=== PATIENT | female | born 1950 | race Caucasian/White ===

== ENCOUNTER → 2016-04-27 | Outpatient (CLI) | payer MEDICARE, BC ==
--- NOTE | 2016-04-27 14:22 | MM ---
Reason for exam: screening (asymptomatic). Last mammogram was performed 1 year ago. History: Patient is postmenopausal. Benign stereotactic core biopsy of the left breast, July 02, 2003. Benign stereotactic core biopsy of the right breast, July 02, 2003. Took hormonal contraceptives for 8 years beginning at age 19. Took estrogen for 6 years 9 months beginning at age 52. Took progesterone for 6 years 9 months beginning at age 52. Physical Findings: A clinical breast exam by your physician is recommended on an annual basis and results should be correlated with mammographic findings. MG Screening Mammo w CAD Bilateral CC and MLO view(s) were taken. Prior study comparison: April 25, 2015, bilateral MG screening mammo w CAD. April 15, 2014, bilateral MG diagnostic mammo w CAD [place]. The breast tissue is heterogeneously dense. This may lower the sensitivity of mammography. Finding: There are typically benign round calcifications in both breasts. Previous mammotome biopsy in the left breast. There is no discrete abnormality. ASSESSMENT: Benign, BI-RAD 2 RECOMMENDATION: Routine screening mammogram of both breasts in 1 year.
== END | disposition home or self-care (01) ==
LOC: RADMAMWWP 08:57
PROVIDERS: ATTEND Obstetrics & Gynecology
DX: Z12.31 Encounter for screening mammogram for malignant neoplasm of breast (principal)

== ENCOUNTER → 2017-03-15 | Outpatient (CLI) | payer MEDICARE ==
[2017-03-15 09:41] LABS: Appearance,Urine Clear (Clear); Bilirubin,Urine Negative (Negative); Glucose,Urine (UA) Negative (Negative); Ketones,Urine Negative (Negative); Leukocyte Esterase,Urine Negative (Negative); Nitrite,Urine Negative (Negative); PH, Urine 7.5 (5.0-8.0); Protein,Urine Negative (Negative); Specific Gravity,Urine 1.015 (1.001-1.035); UA Billing (MACRO vs. MICRO) CHEM; Urobilinogen,Urine <2.0 mg/dL (<2.0)
[2017-03-15 09:42] LABS: Basophils % (A) 1 %; CH 30.7; CHCM 31.6; Eosinophils # (A) 0.2 k/uL (0-0.7); Eosinophils % (A) 3 %; HDW 1.97; HGB 14.1 gm/dL (11.4-16.0); Luc # (Auto) 0.12; Luc % (Auto) 3; Lymphocytes # (A) 2.1 k/uL (1.0-4.8); Lymphocytes % (A) 44 %; MCH 31.2 pg (25.0-35.0); MCHC 31.9 g/dL (31.0-37.0); MCV 97.7 fL (80.0-100.0); Mean Platelet Volume 7.2; Monocytes # (A) 0.3 k/uL (0-1.0); Monocytes % (A) 5 %; Neutrophils # (A) 2.1 k/uL (1.3-7.7); Neutrophils % (A) 45 %; RDW 14.1 % (11.5-15.5); WBC 4.7 k/uL (3.8-10.6); WBC (Perox) 4.78
[2017-03-15 10:09] LABS: ALT 54 U/L (9-52); AST 43 U/L (14-36); Alkaline Phosphatase 52 U/L (38-126); Anion Gap 10 mmol/L; Blood Urea Nitrogen 21 mg/dL (7-17); Calcium 9.4 mg/dL (8.4-10.2); Carbon Dioxide 29 mmol/L (22-30); Chloride 103 mmol/L (98-107); Cholesterol 252 mg/dL (<200); Creatine Kinase 52 U/L (30-135); Glucose 100 mg/dL (74-99); HDL Cholesterol 97 mg/dL (40-60); Non-African American GFR(MDRD) >60 (>60 ml/min/1.73 sqM); Potassium 4.4 mmol/L (3.5-5.1); Sodium 142 mmol/L (137-145); Total Bilirubin 0.4 mg/dL (0.2-1.3); Total Protein 7.3 g/dL (6.3-8.2); Uric Acid 4.4 mg/dL (3.7-7.4)
== END | disposition home or self-care (01) ==
LOC: LABWHC1 08:45
PROVIDERS: ATTEND Internal Medicine
DX: Z00.00 Encounter for general adult medical examination without abnormal findings (principal); E78.00 Pure hypercholesterolemia, unspecified; M85.9 Disorder of bone density and structure, unspecified
CPT/HCPCS: 36415; 80053; 80061; 81003; 82306; 82550; 83036; 84439; 84443; 84550; 85025

== ENCOUNTER → 2017-04-03 | Outpatient (CLI) | payer MEDICARE ==
--- NOTE | 2017-04-03 08:26 | US ---
EXAMINATION TYPE: US abdomen complete DATE OF EXAM: 04/03/2017 COMPARISON: NONE CLINICAL HISTORY: R94.5 Abnormal Results of Liver Function Studies. Abnormal results of liver functio n test, patient states no abdomen pain or N/V EXAM MEASUREMENTS: Liver Length: 12.6 cm Gallbladder Wall: 0.2 cm CBD: 0.3 cm Spleen: n/a Right Kidney: 10.6 x 3.9 x 4.7 cm Left Kidney: 10.6 x 5.7 x 4.7 cm Pancreas: visualized portions wnl, tail limited by overlying midline bowel gas Liver: heterogeneous Gallbladder: wnl Evidence for sonographic Montes's sign: no CBD: wnl Spleen: mostly obscured by overlying bowel gas Right Kidney: small 0.7cm cyst superior pole Left Kidney: visualized portions wnl, superior and inferior poles limited by rib shadowing and overl vito bowel gas Upper IVC: wnl Abd Aorta: wnl The intrahepatic portion of the IVC and proximal abdominal aorta are within normal limits. There is no evidence of cholelithiasis. Common bile duct is unremarkable. The visualized portions of the hernandez creas are homogenous. The spleen is grossly unremarkable. Kidneys are symmetric and free of hydrone phrosis. IMPRESSION: 1. Probable fatty hepatic infiltration. 2. Small right renal cyst.
== END | disposition home or self-care (01) ==
LOC: RADUSWWP 07:35
PROVIDERS: ATTEND Internal Medicine
DX: N28.1 Cyst of kidney, acquired (principal)
CPT/HCPCS: 76700

== ENCOUNTER → 2017-04-29 | Outpatient (CLI) | payer MEDICARE ==
--- NOTE | 2017-05-01 07:37 | MM ---
Reason for exam: screening (asymptomatic). Last mammogram was performed 1 year ago. History: Patient is postmenopausal. Benign stereotactic core biopsy of the left breast, July 02, 2003. Benign stereotactic core biopsy of the right breast, July 02, 2003. Took hormonal contraceptives for 8 years beginning at age 19. Took estrogen for 6 years 9 months beginning at age 52. Took progesterone for 6 years 9 months beginning at age 52. Physical Findings: A clinical breast exam by your physician is recommended on an annual basis and results should be correlated with mammographic findings. MG Screening Mammo w CAD Bilateral CC and MLO view(s) were taken. Prior study comparison: April 27, 2016, bilateral MG screening mammo w CAD. April 25, 2015, bilateral MG screening mammo w CAD. The breast tissue is heterogeneously dense. This may lower the sensitivity of mammography. Finding: There are typically benign diffuse/scattered calcifications in both breasts. No suspicious abnormality. Bilateral biopsy markers No significant changes in finding since April 27, 2016 and April 25, 2015. ASSESSMENT: Benign, BI-RAD 2 RECOMMENDATION: Routine screening mammogram of both breasts in 1 year.
== END | disposition home or self-care (01) ==
LOC: RADMAMWWP 11:19
PROVIDERS: ATTEND Obstetrics & Gynecology
DX: Z12.31 Encounter for screening mammogram for malignant neoplasm of breast (principal)
CPT/HCPCS: 77067

== ENCOUNTER → 2018-09-01 | Outpatient (CLI) | payer MEDICARE ==
--- NOTE | 2018-09-01 14:32 | BD ---
EXAMINATION TYPE: Axial Bone Density DATE OF EXAM: 09/01/2018 COMPARISON: 05/05/2015 CLINICAL HISTORY: Screening for osteoporosis Height: 5 FT 3 1/4 IN Weight: 133 FRAX RISK QUESTIONS: RISK FACTORS HISTORY OF: Family History of Osteoporosis: YES Active: YES Postmenopausal woman: AGE 53 Take estrogen and/or progesterone medications: TOOK LESS THAN ONE YEAR MEDICATIONS: Additional Medications: NONE Additional History: EXAM MEASUREMENTS: Bone mineral densitometry was performed using the ALOSKO System. Bone mineral density as measured about the Lumbar spine is: ----- L1-L4(G/cm2): 1.002 T Score Values are as follows: ----- L2: -1.5 ----- L3: -1.2 ----- L4: -1.7 ----- L1-L4: -1.5 Bone mineral density has: DECREASED -2.9 % since study of: 2015 Bone mineral density about the R hip (g/cm2): 1.030 Bone mineral density about the L hip (g/cm2): 1.004 T Score values are as follows: -----R Neck: -0.1 -----L Neck: -0.2 -----R Total: 0.2 -----L Total: -0.1 Bone mineral density has: DECREASED -0.1 % since study of: 2015 IMPRESSION: Osteopenia (T Score between -2.5 and -1). There is slightly increased risk of fracture and the patient may be considered for treatment. Re-Screen 2-5 years. NOTE: T-SCORE=SD OF THE YOUNG ADULT MEAN.
--- NOTE | 2018-09-02 13:29 | MM ---
Reason for exam: screening (asymptomatic). Last mammogram was performed 1 year and 4 months ago. History: Patient is postmenopausal. Benign stereotactic core biopsy of the left breast, July 02, 2003. Benign stereotactic core biopsy of the right breast, July 02, 2003. Took hormonal contraceptives for 8 years beginning at age 19. Took estrogen for 6 years 9 months beginning at age 52. Took progesterone for 6 years 9 months beginning at age 52. Physical Findings: A clinical breast exam by your physician is recommended on an annual basis and results should be correlated with mammographic findings. MG Screening Mammo w CAD Bilateral CC and MLO view(s) were taken. Prior study comparison: April 29, 2017, bilateral MG screening mammo w CAD. April 27, 2016, bilateral MG screening mammo w CAD. The breast tissue is heterogeneously dense. This may lower the sensitivity of mammography. Benign appearing bilateral calcifications. No suspicious abnormality. Right biopsy marker noted. ASSESSMENT: Benign, BI-RAD 2 RECOMMENDATION: Routine screening mammogram of both breasts in 1 year.
== END | disposition home or self-care (01) ==
LOC: RADMAMWWP 13:00
PROVIDERS: ATTEND Obstetrics & Gynecology
DX: Z12.31 Encounter for screening mammogram for malignant neoplasm of breast (principal); M85.88 Other specified disorders of bone density and structure, other site
CPT/HCPCS: 77067; 77080

== ENCOUNTER → 2020-01-01 | Outpatient (CLI) | payer MEDICARE ==
--- NOTE | 2020-01-05 13:41 | MM ---
Reason for exam: screening (asymptomatic). Last mammogram was performed 1 year and 4 months ago. History: Patient is postmenopausal. Benign stereotactic core biopsy of the left breast, July 02, 2003. Benign stereotactic core biopsy of the right breast, July 02, 2003. Took hormonal contraceptives for 8 years beginning at age 19. Took estrogen for 6 years 9 months beginning at age 52. Took progesterone for 6 years 9 months beginning at age 52. Physical Findings: A clinical breast exam by your physician is recommended on an annual basis and results should be correlated with mammographic findings. MG Screening Mammo w CAD Bilateral CC and MLO view(s) were taken. Prior study comparison: September 01, 2018, bilateral MG screening mammo w CAD. April 29, 2017, bilateral MG screening mammo w CAD. The breast tissue is heterogeneously dense. This may lower the sensitivity of mammography. Previous mammotome biopsy in the right and left breast. Multiple bilateral benign oil cysts. No significant changes when compared with prior studies. ASSESSMENT: Benign, BI-RAD 2 RECOMMENDATION: Routine screening mammogram of both breasts in 1 year.
== END | disposition home or self-care (01) ==
LOC: RADMAMWWP 14:01
PROVIDERS: ATTEND Obstetrics & Gynecology
DX: Z12.31 Encounter for screening mammogram for malignant neoplasm of breast (principal)
CPT/HCPCS: 77067

== ENCOUNTER → 2021-01-27 | Outpatient (CLI) | payer MEDICARE ==
--- NOTE | 2021-01-30 10:46 | MM ---
Reason for exam: screening (asymptomatic). Last mammogram was performed 1 year and 1 month ago. History: Patient is postmenopausal. Benign stereotactic core biopsy of the left breast, July 02, 2003. Benign stereotactic core biopsy of the right breast, July 02, 2003. Took hormonal contraceptives for 8 years beginning at age 19. Took estrogen for 6 years 9 months beginning at age 52. Took progesterone for 6 years 9 months beginning at age 52. Physical Findings: A clinical breast exam by your physician is recommended on an annual basis and results should be correlated with mammographic findings. MG Screening Mammo w CAD Bilateral CC and MLO view(s) were taken. Prior study comparison: January 01, 2020, bilateral MG screening mammo w CAD. September 01, 2018, bilateral MG screening mammo w CAD. The breast tissue is heterogeneously dense. This may lower the sensitivity of mammography. Benign appearing bilateral calcifications. Previous mammotome biopsy in the right and left breast. ASSESSMENT: Benign, BI-RAD 2 RECOMMENDATION: Routine screening mammogram of both breasts in 1 year.
== END | disposition home or self-care (01) ==
LOC: RADMAMWWP 15:43
PROVIDERS: ATTEND Obstetrics & Gynecology
DX: Z12.31 Encounter for screening mammogram for malignant neoplasm of breast (principal); Z78.0 Asymptomatic menopausal state
CPT/HCPCS: 77067

== ENCOUNTER → 2021-02-03 | Outpatient (CLI) | payer MEDICARE ==
--- NOTE | 2021-02-03 15:39 | BD ---
EXAMINATION TYPE: Axial Bone Density DATE OF EXAM: 02/03/2021 COMPARISON: 09/01/2018 CLINICAL HISTORY: disorder of bone. Height: 63 IN Weight: 142 LBS FRAX RISK QUESTIONS: RISK FACTORS HISTORY OF: Family History of Osteoporosis: YES GRANDMOTHER Active: YES Postmenopausal woman: AGE 52 MEDICATIONS: Additional Medications: CALCIUM, VIT D, MULTI VIT, EXAM MEASUREMENTS: Bone mineral densitometry was performed using the [employer] System. Bone mineral density as measured about the Lumbar spine is: ----- L1-L4(G/cm2): 1.053 T Score Values are as follows: ----- L2: -1.1 ----- L3: -0.5 ----- L4: -1.1 ----- L1-L4: -1.1 Bone mineral density has: Increased 6.2% since study of: 09/01/2018 Bone mineral density about the R hip (g/cm2): 0.994 Bone mineral density about the L hip (g/cm2): 0.965 T Score values are as follows: -----R Neck: -0.3 -----L Neck: -0.5 -----R Total: -0.2 -----L Total: -0.3 Bone mineral density has: Decreased -3.4% since study of: 09/01/2018 IMPRESSION: osteopenia. NOTE: T-SCORE=SD OF THE YOUNG ADULT MEAN.
== END | disposition home or self-care (01) ==
LOC: RADBDWWP 14:20
PROVIDERS: ATTEND Obstetrics & Gynecology
DX: M85.89 Other specified disorders of bone density and structure, multiple sites (principal)
CPT/HCPCS: 77080

== ENCOUNTER → 2021-10-18 | Outpatient (CLI) | payer MEDICARE ==
--- NOTE | 2021-10-18 16:42 | XR ---
EXAMINATION TYPE: XR knee complete RT DATE OF EXAM: 10/18/2021 4:35 PM INDICATION: Patient age:Female; 71 years old; Reason for study: M25.561 Pain in right knee; COMPARISON: None. TECHNIQUE: The right knee(s) was examined in 3 projections. Frontal, lateral and oblique. FINDINGS: No evidence of any acute osseous pathology, joint space narrowing, soft tissue swelling, or joint effusion is noted. Minimal osteophyte formation of the patella and tibial plateau. IMPRESSION: 1. No acute osseous pathology. 2. Mild tricompartmental osteoarthritic changes.
--- NOTE | 2021-10-18 17:10 | XR ---
EXAMINATION TYPE: XR shoulder complete RT DATE OF EXAM: 10/18/2021 4:35 PM INDICATION: Patient age:Female; 71 years old; Reason for study: M5.511 Pain in right shoulder; COMPARISON: None TECHNIQUE: The right shoulder was examined in AP, internally rotated and scapular Y projections. . FINDINGS: Mild osteophyte formation of the acromioclavicular joint is present. No significant ostial inflammati on of glenoid or humerus. No evidence of acute osseous pathology, joint dislocation, or soft tissue s welling. The remaining portions of the visualized chest are unremarkable. IMPRESSION: 1. No acute osseous pathology. 2. Mild acromioclavicular joint osteoarthropathy.
== END | disposition home or self-care (01) ==
LOC: RADXRMAIN 16:05
PROVIDERS: ATTEND Nurse Practitioner Family
DX: M17.11 Unilateral primary osteoarthritis, right knee (principal); M19.011 Primary osteoarthritis, right shoulder

== ENCOUNTER → 2022-02-02 | Outpatient (CLI) | payer MEDICARE ==
--- NOTE | 2022-02-05 19:20 | MM ---
Reason for Exam: Screening (asymptomatic). Last screening mammogram was performed 12 month(s) ago. Patient History: Menarche at age 14. First Full-Term at age 26. Postmenopausal. Estrogen for 6 years, 9 months, from age 52 until age 60. Progesterone for 6 years, 9 months, from age 52 until age 60. Hormonal Contraceptives for 8 years from age 19 until age 28. 07/02/2003, Benign Stereotactic Core Biopsy on the right side. 07/02/2003, Benign Stereotactic Core Biopsy on the left side. Risk Values: Rubi 5 year model risk: 2.6%. NCI Lifetime model risk: 7.3%. Prior Study Comparison: 09/01/2018 Bilateral Screening Mammogram, [facility]. 01/01/2020 Bilateral Screening Mammogram, [facility]. 01/27/2021 Bilateral Screening Mammogram, [facility]. Tissue Density: The breast tissue is heterogeneously dense. This may lower the sensitivity of mammography. Findings: Analyzed By CAD. Multiple areas of asymmetric densities on both sides are unchanged. Benign bilateral oil cyst calcifications. There is no suspicious group of microcalcifications or new suspicious mass in either breast. Overall Assessment: Benign, BI-RAD 2 Management: Screening Mammogram of both breasts in 1 year. 1. Patient should continue monthly self breast exams. 2. A clinical breast exam by your physician is recommended on an annual basis. 3. This exam should not preclude additional follow-up of suspicious palpable abnormalities. Electronically signed and approved by: Danielle Benítez M.D. Radiologist
== END | disposition home or self-care (01) ==
LOC: RADMAMWWP 14:33
PROVIDERS: ATTEND Obstetrics & Gynecology
DX: Z12.31 Encounter for screening mammogram for malignant neoplasm of breast (principal); Z78.0 Asymptomatic menopausal state
CPT/HCPCS: 77067

== ENCOUNTER → 2023-02-04 | Outpatient (CLI) | payer MEDICARE ==
--- NOTE | 2023-02-05 09:03 | MM ---
Reason for Exam: Screening (asymptomatic). Last screening mammogram was performed 12 month(s) ago. Patient History: Menarche at age 14. First Full-Term at age 26. Postmenopausal. Estrogen for 6 years, 9 months, from age 52 until age 60. Progesterone for 6 years, 9 months, from age 52 until age 60. Hormonal Contraceptives for 8 years from age 19 until age 28. 07/02/2003, Benign Stereotactic Core Biopsy on the right side. 07/02/2003, Benign Stereotactic Core Biopsy on the left side. Risk Values: Rubi 5 year model risk: 2.7%. NCI Lifetime model risk: 6.9%. Prior Study Comparison: 01/01/2020 Bilateral Screening Mammogram, [facility]. 01/27/2021 Bilateral Screening Mammogram, [facility]. 02/02/2022 Bilateral MG screening mammo w CAD, [facility]. Tissue Density: The breast tissue is heterogeneously dense. This may lower the sensitivity of mammography. Findings: Analyzed By CAD. There is no suspicious group of microcalcifications or new suspicious mass in either breast. Overall Assessment: Benign, BI-RAD 2 Management: Screening Mammogram of both breasts in 1 year. . Patient should continue monthly self-breast exams. A clinical breast exam by your physician is recommended on an annual basis. This exam should not preclude additional follow-up of suspicious palpable abnormalities. Note on Rubi scores and lifetime risk: 1. A Rubi score greater than 3% is considered moderate risk. If this is the case, consider specialist referral to assess eligibility for a risk reducing agent. 2. If overall lifetime risk for the development of breast cancer is 20% or higher, the patient may qualify for future screening with alternating mammogram and breast MRI. Electronically signed and approved by: Craig Freitas M.D. Radiologis
== END | disposition home or self-care (01) ==
LOC: RADMAMWWP 15:56
PROVIDERS: ATTEND Obstetrics & Gynecology
DX: Z12.31 Encounter for screening mammogram for malignant neoplasm of breast (principal); Z78.0 Asymptomatic menopausal state
CPT/HCPCS: 77067

== ENCOUNTER → 2023-03-07 | Outpatient (CLI) | payer MEDICARE ==
--- NOTE | 2023-03-08 11:56 | BD ---
EXAMINATION TYPE: Axial Bone Density DATE OF EXAM: 03/07/2023 CLINICAL HISTORY: 72 years old Female. ICD-10 CODE: M89.9 DISORDER OF BONE, UNSPECIFIED Height: 63 Weight: 140 FRAX RISK QUESTIONS: Alcohol (3 or more units per day): no Family History (Parent hip fracture): no Glucocorticoids (More than 3mos): no (Ex: prednisone, prednisolone, methylprednisolone, dexamethasone, and hydrocortisone). History of Fracture in Adulthood: no Secondary Osteoporosis: 1. Type 1 Diabetes: no 2. Hyperthyroidism: no 3. Menopause before 45: no 4. Malnutrition: no 5. Chronic liver disease: no Rheumatoid Arthritis: no Current Tobacco Use: no RISK FACTORS HISTORY OF: Surgery to Spine/Hip(right/left)/Wrist (right/left): no Additional History: EXAM MEASUREMENTS: Bone mineral densitometry was performed using the [employer] System. Bone mineral density as measured about the Lumbar spine is: ----- L1-L4(G/cm2): 1.009 T Score Values are as follows: ----- L1: -1.6 ----- L2: -1.9 ----- L3: -0.7 ----- L4: -1.7 ----- L1-L4: -1.4 Z Score Values are as follows: ----- L1: 0.1 ----- L2: -0.1 ----- L3: 1.1 ----- L4: 0.0 ----- L1-L4: 0.3 Bone mineral density has: decreased -4.2 % since study of: 02.03.2021 Bone mineral density about the R hip (g/cm2): 0.993 Bone mineral density about the L hip (g/cm2): 1.047 T Score values are as follows: -----R Neck: -0.2 -----L Neck: 0.2 -----R Total: -0.1 -----L Total: 0.3 Z Score values are as follows: -----R Neck: 1.6 -----L Neck: 2.0 -----R Total: 1.5 -----L Total: 1.9 Bone mineral density has: increased 4.5 % since study of: 02.03.2020 FRAX%s: The graph provided illustrates a 7.8% chance for a major osteoporotic fx and a 0.6% chance fo r the hips probability for fx in 10 years time. IMPRESSION: Osteopenia (T Score between -2.5 and -1). There is slightly increased risk of fracture and the patient may be considered for treatment. Re-Screen 2-5 years. NOTE: T-SCORE=SD OF THE YOUNG ADULT MEAN.
== END | disposition home or self-care (01) ==
LOC: RADBDWWP 14:52
PROVIDERS: ATTEND Internal Medicine Geriatric Medicine
DX: M85.89 Other specified disorders of bone density and structure, multiple sites (principal)
CPT/HCPCS: 77080

== ENCOUNTER → 2023-03-14 | Outpatient (CLI) | payer MEDICARE ==
[2023-03-14 15:56] VITALS: BP 117/75; PULSE 70; RESP 17; TEMP 98.3
--- NOTE | 2023-03-14 16:00 | P.GSHP ---
History of Present Illness H&P Date: 03/14/23 Chief Complaint: nodule right breast Karley is a 72 year old female seen in consultation for DR. Hargrove regarding a lump in her left breast. She had a bilateral mammogram on [id number] which was felt to be benign BIRADS 2. The patient felt some increased nodularity in the outer quadrant of the left breast. It hasn't changed recently. She has had bilateral needle aspirations in Dr. Meza's office in the remote past. She has not had any cancer on her biopsies. At had any recent trauma or infection in the breast. She is not complaining of any nipple discharge or skin changes. His not had any open surgical procedures on either breast. Caffeine:3 cups/day nicotine: none chocolate: occasional BCP: about 8 years hormones: at menopause for < 1 year Family History: mother: uterine cancer maternal great aunts: 2 with uterine cancer Hormonal History: menarche: 14 , breast fed: yes, age at first : 26 menopause: 53 Surgical history: cyst right chst wall tubaligation foot surgery Medical History: high cholesterol Social History: nicotine: none alcohol: glass of wine nightly drugs: none - Constitutional Constitutional: Denies chills, Denies fever - EENT Eyes: denies blurred vision, denies pain Ears: deny: decreased hearing, tinnitus Ears, nose, mouth and throat: Denies headache, Denies sore throat - Breasts Breasts: bilateral: as per HPI - Cardiovascular Cardiovascular: Denies chest pain, Denies shortness of breath - Respiratory Respiratory: Denies cough, Denies 7 - Gastrointestinal Gastrointestinal: Denies abdominal pain, Denies diarrhea, Denies nausea, Denies vomiting - Genitourinary (Female) Genitourinary: Denies dysuria, Denies hematuria - Menstruation Menstruation: Reports postmenopausal - Musculoskeletal Musculoskeletal: Denies myalgias - Integumentary Integumentary: Denies pruritus, Denies rash - Neurological Neurological: Denies numbness, Denies weakness - Psychiatric Psychiatric: Denies anxiety, Denies depression - Endocrine Endocrine: Denies fatigue, Denies weight change - Hematologic/Lymphatic Comment: none - Allergic/Immunologic Allergic/Immunologic: Reports as per HPI Past Medical History Past Medical History: No Reported History Additional Past Medical History / Comment(s): BILATERAL BREAST BX History of Any Multi-Drug Resistant Organisms: None Reported Past Surgical History: No Surgical Hx Reported Past Anesthesia/Blood Transfusion Reactions: No Reported Reaction Past Psychological History: No Psychological Hx Reported Smoking Status: Never smoker Past Alcohol Use History: Occasional Past Drug Use History: None Reported Medications and Allergies Home Medications Medication Instructions Recorded Confirmed Type Rosuvastatin [Crestor] 10 mg PO DAILY 03/14/23 03/14/23 History Allergies Allergy/AdvReac Type Severity Reaction Status Date / Time No Known Allergies Allergy Unverified 03/14/23 15:33 Surgical - Exam Vital Signs Temp Pulse Resp BP Pulse Ox 98.3 F 70 17 117/75 98 03/14/23 15:38 03/14/23 15:38 03/14/23 15:38 03/14/23 15:38 03/14/23 15:38 - General no distress - Eyes normal ocular movement - Neck trachea midline - Respiratory normal respiratory effort, clear to auscultation - Cardiovascular Rhythm: regular Heart Sounds: normal: S1, S2 - Abdomen Abdomen: soft, non tender, no guarding, no rigid, no rebound - Integumentary normal turgor - Neurologic no disoriented, no combative - Musculoskeletal normal gait - Psychiatric oriented to time, oriented to person, oriented to place, speech is normal, memory intact Breast Exam: BRA: 36C inspection: Left breast slightly larger than right breast, bilateral grade 2 ptosis Palpation: Right breast: Multi-positional exam fibrocystic changes, mild increased nodularity upper outer quadrant area Right axilla: No adenopathy of concern Left breast: Multi-positional exam fibrocystic changes, no dominant masses or nodules of concern Left axilla: No adenopathy of concern Results Mammogram results reviewed Assessment and Plan Assessment: Impression: Slightly increased palpable change right breast upper outer quadrant Fibrocystic breast changes Asymmetry of the breast High cholesterol Plan: Right breast ultrasound upper outer quadrant if this does not show anything of concern would repeat bilateral mammogram in 1 year with examination at that time Ultrasound is negative would do a core needle biopsy of palpable change Repeat physician exam in 6 months Patient to follow up sooner any questions or concerns Cc: Dr. Maxwell, Dr. Hargrove
== END ==
LOC: WWCWWP 14:53
PROVIDERS: ATTEND Surgery
DX: N60.11 Diffuse cystic mastopathy of right breast (principal); N63.20 Unspecified lump in the left breast, unspecified quadrant; E78.00 Pure hypercholesterolemia, unspecified; N64.89 Other specified disorders of breast

== ENCOUNTER → 2023-03-29 | Outpatient (CLI) | payer MEDICARE ==
--- NOTE | 2023-03-29 08:45 | USB ---
Reason for Exam: Clinical finding. Patient History: Menarche at age 14. First Full-Term at age 26. Postmenopausal. Estrogen for 6 years, 9 months, from age 52 until age 60. Progesterone for 6 years, 9 months, from age 52 until age 60. Hormonal Contraceptives for 8 years from age 19 until age 28. 07/02/2003, Benign Stereotactic Core Biopsy on the right side. 07/02/2003, Benign Stereotactic Core Biopsy on the left side. Risk Values: Rubi 5 year model risk: 2.7%. NCI Lifetime model risk: 6.9%. Prior Study Comparison: 04/15/2014 Right Diagnostic Ultrasound, [facility]. 01/27/2021 Bilateral Screening Mammogram, [facility]. 02/02/2022 Bilateral MG screening mammo w CAD, [facility]. 02/04/2023 Bilateral MG screening mammo w CAD, [facility]. Findings: The upper outer quadrant of the right breast, the area of palpable concern of the right breast, the axilla of the right breast and the retroareolar of the right breast were scanned. No solid or cystic masses are identified. Upper outer quadrant right breast appears unremarkable. No abnormality to correlate with the palpable region is evident. Overall Assessment: Incomplete: need additional imaging evaluation, BI-RAD 0 Management: Diagnostic Mammogram of the right breast. A clinical breast exam by your physician is recommended on an annual basis and results should be correlated with mammographic findings. This exam should not preclude additional follow-up of suspicious palpable abnormalities. Results were given to the patient verbally at the time of exam. Electronically signed and approved by: Hugh Aguilera D.O. Radiologis
[2023-03-29 09:55] VITALS: BP 115/72; PULSE 62; RESP 17; TEMP 98.7
--- NOTE | 2023-03-29 10:14 | P.PN ---
Subjective Progress Note Date: 03/29/23 nodule right breast Karley is a 72 year old female seen in consultation for DR. Hargrove regarding a lump in her right breast. She had a bilateral mammogram on [id number] which was felt to be benign BIRADS 2. The patient felt some increased nodularity in the outer quadrant of the right breast. It hasn't changed recently. She has had bilateral needle aspirations in Dr. Meza's office in the remote past. She has not had any cancer on her biopsies. She has not had any recent trauma or infection in the breast. She is not complaining of any nipple discharge or skin changes. His not had any open surgical procedures on either breast. 03-29-23 right breast ultrasound and diagnostic mammogram no lesions of concern at palpable change; time the area is less perceptible to the patient in the upper outer quadrant On her last appointment which was on [id number] we considered doing a needle biopsy if nothing was seen on radiographic evaluation. However as the area is less perceptible to the patient and nothing is seen radiographically repeat examination was done and no discrete lesions are identified. Therefore we are going to follow this conservatively. Caffeine:3 cups/day nicotine: none chocolate: occasional BCP: about 8 years hormones: at menopause for < 1 year Family History: mother: uterine cancer maternal great aunts: 2 with uterine cancer Hormonal History: menarche: 14 , breast fed: yes, age at first : 26 menopause: 53 Surgical history: cyst right chst wall tubaligation foot surgery Medical History: high cholesterol Social History: nicotine: none alcohol: glass of wine nightly drugs: none - Constitutional Constitutional: Denies chills, Denies fever - EENT Eyes: denies blurred vision, denies pain Ears: deny: decreased hearing, tinnitus Ears, nose, mouth and throat: Denies headache, Denies sore throat - Breasts Breasts: bilateral: as per HPI - Cardiovascular Cardiovascular: Denies chest pain, Denies shortness of breath - Respiratory Respiratory: Denies cough - Gastrointestinal Gastrointestinal: Denies abdominal pain, Denies diarrhea, Denies nausea, Denies vomiting - Genitourinary (Female) Genitourinary: Denies dysuria, Denies hematuria - Menstruation Menstruation: Reports postmenopausal - Musculoskeletal Musculoskeletal: Denies myalgias - Integumentary Integumentary: Denies pruritus, Denies rash - Neurological Neurological: Denies numbness, Denies weakness - Psychiatric Psychiatric: Denies anxiety, Denies depression - Endocrine Endocrine: Denies fatigue, Denies weight change - Hematologic/Lymphatic Comment: none - Allergic/Immunologic Allergic/Immunologic: Reports as per HPI Past Medical History Past Medical History: No Reported History Additional Past Medical History / Comment(s): BILATERAL BREAST BX History of Any Multi-Drug Resistant Organisms: None Reported Past Surgical History: No Surgical Hx Reported Past Anesthesia/Blood Transfusion Reactions: No Reported Reaction Past Psychological History: No Psychological Hx Reported Smoking Status: Never smoker Past Alcohol Use History: Occasional Past Drug Use History: None Reported Medications and Allergies Home Medications Medication Instructions Recorded Confirmed Type Rosuvastatin [Crestor] 10 mg PO DAILY 03/14/23 03/14/23 History Allergies Allergy/AdvReac Type Severity Reaction Status Date / Time No Known Allergies Allergy Unverified 03/14/23 15:33 Objective - Vital Signs Vital signs: Vital Signs Temp 98.7 F 03/29/23 09:39 Pulse 62 03/29/23 09:39 Resp 17 03/29/23 09:39 BP 115/72 03/29/23 09:39 Pulse Ox 97 03/29/23 09:39 FiO2 Intake & Output 03/28/23 03/29/23 03/29/23 18:59 06:59 18:59 Weight 63.503 kg - Constitutional General appearance: Present: cooperative - EENT ENT: Present: hearing grossly normal - Neck Neck: Present: normal ROM - Respiratory Respiratory: bilateral: CTA - Cardiovascular Heart sounds: normal: S1, S2 - Integumentary Integumentary: Present: normal turgor - Psychiatric Psychiatric: Present: A&O x's 3, appropriate affect, intact judgment & insight - Additional findings Additional findings: Breast Exam: BRA: 36C inspection: Left breast slightly larger than right breast, bilateral grade 2 ptosis Palpation: Right breast: Multi-positional exam fibrocystic changes; Particular attention to the upper outer quadrant area does not reveal any specific increased nodularity greater than on the contralateral side no definite masses or nodules are identified Right axilla: No adenopathy of concern Left breast: Multi-positional exam fibrocystic changes, no dominant masses or nodules of concern Left axilla: No adenopathy of concern Assessment and Plan Assessment: Impression: Slightly increased palpable change right breast upper outer quadrant on visit of [id number] not apparent on today's examination Fibrocystic breast changes Asymmetry of the breast High cholesterol Right breast ultrasound and diagnostic mammogram 1524 BIRAD 2 Plan: After discussion with the patient has not been radiographically on physical exam today which would warrant interventional biopsy therefore we will plan on Repeat physician exam in 6 months, patient notes anything of concern she will follow up sooner Patient to follow up sooner any questions or concerns Cc: Dr. Maxwell, Dr. Hargrove
== END ==
LOC: WWCWWP 08:15
PROVIDERS: ATTEND Surgery
DX: N63.10 Unspecified lump in the right breast, unspecified quadrant (principal); N60.11 Diffuse cystic mastopathy of right breast; N64.89 Other specified disorders of breast; E78.00 Pure hypercholesterolemia, unspecified; Z78.0 Asymptomatic menopausal state

== ENCOUNTER → 2023-03-29 | Outpatient (CLI) | payer MEDICARE ==
--- NOTE | 2023-03-29 09:20 | MM ---
Reason for Exam: Clinical finding. Last screening mammogram was performed 2 month(s) ago. Patient History: Menarche at age 14. First Full-Term at age 26. Postmenopausal. Estrogen for 6 years, 9 months, from age 52 until age 60. Progesterone for 6 years, 9 months, from age 52 until age 60. Hormonal Contraceptives for 8 years from age 19 until age 28. 07/02/2003, Benign Stereotactic Core Biopsy on the right side. 07/02/2003, Benign Stereotactic Core Biopsy on the left side. Risk Values: Rubi 5 year model risk: 2.7%. NCI Lifetime model risk: 6.9%. Prior Study Comparison: 01/27/2021 Bilateral Screening Mammogram, [facility]. 02/02/2022 Bilateral MG screening mammo w CAD, [facility]. 02/04/2023 Bilateral MG screening mammo w CAD, [facility]. Tissue Density: Right: The breast tissue is heterogeneously dense. This may lower the sensitivity of mammography. Findings: Analyzed By CAD. Pattern appears stable. Core marker is within the upper outer mid right breast. Palpable marker is placed in the upper outer right breast. No underlying suspicious mammographic finding is evident. There are multiple benign round calcifications. No suspicious groups of microcalcifications, spiculated or lobular masses, architectural distortion or other secondary signs of malignancy are mammographically apparent. Overall Assessment: Benign, BI-RAD 2 Management: Screening Mammogram of both breasts in 10 months. A negative mammogram report should not preclude additional follow up of suspicious palpable abnormalities. Patient should continue monthly self breast exam. A clinical breast exam by your physician is recommended on an annual basis and results should be correlated with mammographic findings. Electronically signed and approved by: Hugh Aguilera D.O. Radiologis
== END | disposition home or self-care (01) ==
LOC: RADUSWWP 08:18
PROVIDERS: ATTEND Surgery
DX: N63.10 Unspecified lump in the right breast, unspecified quadrant (principal); R92.331 Mammographic heterogeneous density, right breast; Z78.0 Asymptomatic menopausal state
CPT/HCPCS: 77065

== ENCOUNTER → 2023-10-04 | Outpatient (CLI) | payer MEDICARE ==
[2023-10-04 09:09] VITALS: BP 136/79; PULSE 60; RESP 16; TEMP 98.7
--- NOTE | 2023-10-04 09:37 | P.PN ---
Subjective Progress Note Date: 10/04/23 Principal diagnosis: Fibrocystic breast changes 10-04-23 nodule right breast Karley is a 73 year old female seen in consultation for DR. Hargrove regarding a lump in her right breast in February 2023. She had a bilateral mammogram on 11120427 which was felt to be benign BIRADS 2. The patient felt some increased nodularity in the outer quadrant of the right breast. It hasn't changed recently. She has had bilateral needle aspirations in Dr. Meza's office in the remote past. She has not had any cancer on her biopsies. She has not had any recent trauma or infection in the breast. She is not complaining of any nipple discharge or skin changes. His not had any open surgical procedures on either breast. 03-29-23 right breast ultrasound and diagnostic mammogram no lesions of concern at palpable change; at the time she was seen on 03-29-23 the area was less p erceptible to the patient in the upper outer quadrant Rubi Risk: 2.7% Patient declined chemoprophylaxis On her last appointment which was on [id number] we considered doing a needle biopsy if nothing was seen on radiographic evaluation. However as the area was less perceptible to the patient and nothing was seen radiographically repeat examination was done and no discrete lesions were identified. Therefore we are going to follow this conservatively. At this time the patient does not feel any new lumps masses or nodules of concern in either breast. The nodule which had previously been present in the right breast seems to have dissipated. Caffeine:3 cups/day nicotine: none chocolate: occasional BCP: about 8 years hormones: at menopause for < 1 year Family History: mother: uterine cancer maternal great aunts: 2 with uterine cancer Hormonal History: menarche: 14 , breast fed: yes, age at first : 26 menopause: 53 Surgical history: cyst right chst wall tubaligation foot surgery Medical History: high cholesterol Social History: nicotine: none alcohol: glass of wine nightly drugs: none - Constitutional Constitutional: Denies chills, Denies fever - EENT Eyes: denies blurred vision, denies pain Ears: deny: decreased hearing, tinnitus Ears, nose, mouth and throat: Denies headache, Denies sore throat - Breasts Breasts: bilateral: as per HPI - Cardiovascular Cardiovascular: Denies chest pain, Denies shortness of breath - Respiratory Respiratory: Denies cough - Gastrointestinal Gastrointestinal: Denies abdominal pain, Denies diarrhea, Denies nausea, Denies vomiting - Genitourinary (Female) Genitourinary: Denies dysuria, Denies hematuria - Menstruation Menstruation: Reports postmenopausal - Musculoskeletal Musculoskeletal: Denies myalgias - Integumentary Integumentary: Denies pruritus, Denies rash - Neurological Neurological: Denies numbness, Denies weakness - Psychiatric Psychiatric: Denies anxiety, Denies depression - Endocrine Endocrine: Denies fatigue, Denies weight change - Hematologic/Lymphatic Comment: none - Allergic/Immunologic Allergic/Immunologic: Reports as per HPI Past Medical History Past Medical History: No Reported History Additional Past Medical History / Comment(s): BILATERAL BREAST BX History of Any Multi-Drug Resistant Organisms: None Reported Past Surgical History: No Surgical Hx Reported Past Anesthesia/Blood Transfusion Reactions: No Reported Reaction Past Psychological History: No Psychological Hx Reported Smoking Status: Never smoker Past Alcohol Use History: Occasional Past Drug Use History: None Reported Medications and Allergies Home Medications Medication Instructions Recorded Confirmed Type Rosuvastatin [Crestor] 10 mg PO DAILY 03/14/23 03/14/23 History Allergies Allergy/AdvReac Type Severity Reaction Status Date / Time No Known Allergies Allergy Unverified 03/14/23 15:33 Objective - Vital Signs Vital signs: Vital Signs Temp 98.7 F 10/04/23 09:07 Pulse 60 10/04/23 09:07 Resp 16 10/04/23 09:07 BP 136/79 10/04/23 09:07 Pulse Ox 97 10/04/23 09:07 FiO2 Intake & Output 10/03/23 10/04/23 10/04/23 18:59 06:59 18:59 Weight 58.967 kg - Constitutional General appearance: Present: cooperative - EENT Eyes: Present: EOMI ENT: Present: hearing grossly normal - Neck Neck: Present: normal ROM - Respiratory Respiratory: bilateral: CTA - Cardiovascular Heart sounds: normal: S1, S2 - Integumentary Integumentary: Present: normal turgor - Musculoskeletal Musculoskeletal: Present: gait normal - Psychiatric Psychiatric: Present: A&O x's 3, appropriate affect, intact judgment & insight - Additional findings Additional findings: Breast Exam: BRA: 36C inspection: Left breast slightly larger than right breast, bilateral grade 2 ptosis Palpation: Right breast: Multi-positional exam fibrocystic changes; Particular attention to the upper outer quadrant area does not reveal any specific increased nodularity greater than on the contralateral side no definite masses or nodules are identified Right axilla: No adenopathy of concern Left breast: Multi-positional exam fibrocystic changes, no dominant masses or nodules of concern Left axilla: No adenopathy of concern Assessment and Plan Assessment: Impression: Slightly increased palpable change right breast upper outer quadrant on visit of [id number] not apparent on today's examination Fibrocystic breast changes Asymmetry of the breast High cholesterol Right breast ultrasound and diagnostic mammogram 1524 BIRAD 2 patient no longer feels anything of concern in her breast Plan: Bilateral mammogram in January 2024 with appointment at that time Patient to follow-up sooner any questions or concerns Cc: Dr. Hargrove
== END ==
LOC: WWCWWP 08:40
PROVIDERS: ATTEND Surgery
DX: R92.8 Other abnormal and inconclusive findings on diagnostic imaging of breast (principal); N60.11 Diffuse cystic mastopathy of right breast; N63.10 Unspecified lump in the right breast, unspecified quadrant; N64.89 Other specified disorders of breast; E78.00 Pure hypercholesterolemia, unspecified

== ENCOUNTER → 2024-02-06 | Outpatient (CLI) | payer MEDICARE ==
--- NOTE | 2024-02-09 14:33 | MM ---
Reason for Exam: Screening (asymptomatic). Last screening mammogram was performed 12 month(s) ago. Patient History: Menarche at age 14. First Full-Term at age 26. Postmenopausal. Estrogen for 6 years, 9 months, from age 52 until age 60. Progesterone for 6 years, 9 months, from age 52 until age 60. Hormonal Contraceptives for 8 years from age 19 until age 28. 07/02/2003, Benign Stereotactic Core Biopsy on the right side. 07/02/2003, Benign Stereotactic Core Biopsy on the left side. Risk Values: Rubi 5 year model risk: 2.7%. NCI Lifetime model risk: 6.5%. Prior Study Comparison: 02/02/2022 Bilateral MG screening mammo w CAD, [facility]. 02/04/2023 Bilateral MG screening mammo w CAD, [facility]. 03/29/2023 Right MG diagnostic mammo RT w CAD, [facility]. Tissue Density: There are scattered areas of fibroglandular density. Findings: Analyzed By CAD. The pattern is symmetrical. No significant interval change. Multiple benign spherical calcifications are present bilaterally. Core marker is within the right breast No suspicious groups of microcalcifications, spiculated or lobular masses, architectural distortion or other secondary signs of malignancy are mammographically apparent. Overall Assessment: Benign, BI-RAD 2 Management: Screening Mammogram of both breasts in 1 year. A negative mammogram report should not preclude additional follow up of suspicious palpable abnormalities. Patient should continue monthly self breast exam. A clinical breast exam by your physician is recommended on an annual basis and results should be correlated with mammographic findings. Note on Rubi scores and lifetime risk: 1. A Rubi score greater than 3% is considered moderate risk. If this is the case, consider specialist referral to assess eligibility for a risk reducing agent. 2. If overall lifetime risk for the development of breast cancer is 20% or higher, the patient may qualify for future screening with alternating mammogram and breast MRI. [facility], , 02/09/2024 2:30 PM. Electronically signed and approved by: Hugh Aguilera D.O. Radiologis
== END | disposition home or self-care (01) ==
LOC: RADMAMWWP 09:36
PROVIDERS: ATTEND Surgery
DX: Z12.31 Encounter for screening mammogram for malignant neoplasm of breast (principal); R92.323 Mammographic fibroglandular density, bilateral breasts; Z78.0 Asymptomatic menopausal state
CPT/HCPCS: 77063; 77067

== ENCOUNTER → 2024-02-13 | Outpatient (CLI) | payer MEDICARE ==
[2024-02-13 09:19] VITALS: BP 135/71; PULSE 67; RESP 15; TEMP 98
--- NOTE | 2024-02-13 09:31 | P.PN ---
Subjective Progress Note Date: 02/13/24 Fibrocystic breast changes 02-13-24 nodule right breast Karley is a 73 year old female seen in consultation for DR. Hargrove regarding a lump in her right breast in February 2023. She was last seen on 10-04-23. She had a bilateral mammogram on 11120427 which was felt to be benign BIRADS 2. The patient felt some increased nodularity in the outer quadrant of the right breast. It hasn't changed recently. She has had bilateral needle aspirations in Dr. Meza's office in the remote past. She has not had any cancer on her biopsies. She has not had any recent trauma or infection in the breast. She is not complaining of any nipple discharge or skin changes. His not had any open surgical procedures on either breast. 03-29-23 right breast ultrasound and diagnostic mammogram no lesions of concern at palpable change; at the time she was seen on 03-29-23 the area was less perceptible to the patient in the upper outer quadrant Rubi Risk: 2.7% Patient declined chemoprophylaxis On a prior appointment which was on [id number] we considered doing a needle biopsy if nothing was seen on radiographic evaluation. However as the area was less perceptible to the patient on 10-04-23 and nothing was seen radiographically repeat examination was done and no discrete lesions were identified. Therefore we decided to follow this conservatively. At this time the patient does not feel any new lumps masses or nodules of concern in either breast. The nodule which had previously been present in the right breast seems to have dissipated. bilateral mammogram on 02-06-24 personally reviewed and interpreted and BIRAD 2 She is not complaining of any new lumps masses or nodules of concern in either breast Caffeine:3 cups/day nicotine: none chocolate: occasional BCP: about 8 years hormones: at menopause for < 1 year Family History: mother: uterine cancer maternal great aunts: 2 with uterine cancer Hormonal History: menarche: 14 , breast fed: yes, age at first : 26 menopause: 53 Surgical history: cyst right chst wall tubaligation foot surgery Medical History: high cholesterol trazadone to sleep at night Social History: nicotine: none alcohol: glass of wine nightly drugs: none - Constitutional Constitutional: Denies chills, Denies fever - EENT Eyes: denies blurred vision, denies pain Ears: deny: decreased hearing, tinnitus Ears, nose, mouth and throat: Denies headache, Denies sore throat - Breasts Breasts: bilateral: as per HPI - Cardiovascular Cardiovascular: Denies chest pain, Denies shortness of breath - Respiratory Respiratory: Denies cough - Gastrointestinal Gastrointestinal: Denies abdominal pain, Denies diarrhea, Denies nausea, Denies vomiting - Genitourinary (Female) Genitourinary: Denies dysuria, Denies hematuria - Menstruation Menstruation: Reports postmenopausal - Musculoskeletal Musculoskeletal: Denies myalgias - Integumentary Integumentary: Denies pruritus, Denies rash - Neurological Neurological: Denies numbness, Denies weakness - Psychiatric Psychiatric: Denies anxiety, Denies depression - Endocrine Endocrine: Denies fatigue, Denies weight change - Hematologic/Lymphatic Comment: none - Allergic/Immunologic Allergic/Immunologic: Reports as per HPI Past Medical History Past Medical History: No Reported History Additional Past Medical History / Comment(s): BILATERAL BREAST BX History of Any Multi-Drug Resistant Organisms: None Reported Past Surgical History: No Surgical Hx Reported Past Anesthesia/Blood Transfusion Reactions: No Reported Reaction Past Psychological History: No Psychological Hx Reported Smoking Status: Never smoker Past Alcohol Use History: Occasional Past Drug Use History: None Reported Medications and Allergies Home Medications Medication Instructions Recorded Confirmed Type Rosuvastatin [Crestor] 10 mg PO DAILY 03/14/23 03/14/23 History Allergies Allergy/AdvReac Type Severity Reaction Status Date / Time No Known Allergies Allergy Unverified 03/14/23 15:33 Objective - Vital Signs Vital signs: Vital Signs Temp 98.0 F 02/13/24 09:15 Pulse 67 02/13/24 09:15 Resp 15 02/13/24 09:15 BP 135/71 02/13/24 09:15 Pulse Ox 99 02/13/24 09:15 FiO2 Intake & Output 02/12/24 02/13/24 02/13/24 18:59 06:59 18:59 Weight 61.235 kg - Constitutional General appearance: Present: cooperative - EENT Eyes: Present: EOMI ENT: Present: hearing grossly normal - Neck Neck: Present: normal ROM - Respiratory Respiratory: bilateral: CTA - Cardiovascular Rhythm: regular Heart sounds: normal: S1, S2 - Integumentary Integumentary: Present: normal turgor - Musculoskeletal Musculoskeletal: Present: gait normal - Psychiatric Psychiatric: Present: A&O x's 3, appropriate affect, intact judgment & insight - Additional findings Additional findings: Breast Exam: BRA: 36C inspection: Left breast slightly larger than right breast, bilateral grade 2 ptosis Palpation: Right breast: Multi-positional exam fibrocystic changes; Particular attention to the upper outer quadrant area does not reveal any specific increased nodularity greater than on the contralateral side no definite masses or nodules are identified Right axilla: No adenopathy of concern Left breast: Multi-positional exam fibrocystic changes, no dominant masses or nodules of concern Left axilla: No adenopathy of concern Assessment and Plan Assessment: Impression: Slightly increased palpable change right breast upper outer quadrant on visit of [id number] not apparent on today's examination Fibrocystic breast changes Asymmetry of the breast High cholesterol Right breast ultrasound and diagnostic mammogram 1524 BIRAD 2 patient no longer feels anything of concern in her breast bilateral mammogram 02-06-24 ISAAC 2 personally reviewed and interpreted Plan: Bilateral mammogram in January 2025 this is to be ordered by her primary care physician she will follow-up there and she will follow here if she has any further questions or concerns Patient to follow-up sooner any questions or concerns Cc: Dr. Hargrove
== END ==
LOC: WWCWWP 08:59
PROVIDERS: ATTEND Surgery
DX: R92.8 Other abnormal and inconclusive findings on diagnostic imaging of breast (principal); N60.11 Diffuse cystic mastopathy of right breast; N63.10 Unspecified lump in the right breast, unspecified quadrant; N64.89 Other specified disorders of breast; E78.00 Pure hypercholesterolemia, unspecified